=== PATIENT | female | born 1975 | race Caucasian/White ===

== ENCOUNTER → 2016-05-16 | Outpatient (CLI) | payer MEDICAID ==
[~2016-05-16] MED LIST: ACET-2267 PO; ACET1TAB43 PO; DOCU100C37 PO; FERR-74 PO; IBUP-1773 PO; PREN1TAB19 PO
--- OUTSIDE RECORDS SUMMARY | 2016-05-16 08:00 | XMS REPORT ---
Author ALON Mar Organization [employer] Address Unknown Phone Unavailable Care Team Providers Care Jazz Musician Name Role Phone ALON WELLS CP Unavailable Allergies, Adverse Reactions, Alerts Substance Reaction Event Type Latex Info Not Available Drug Allergy Triple Antibiotic Info Not Available Drug Allergy SulfADIAZINE Sodium Info Not Available Drug Allergy nut allergy Info Not Available Non Drug Allergy Problems Problem Type Condition Code Onset Dates Condition Status Problem Routine health maintenance Z00.00 Active Problem Family history of cancer Z80.9 Active Problem Thrombocytopenia D69.6 Active Problem Encounter for dental examination Z01.20 Active Assessment Rash R21 Active Problem Family history of essential hypertension Z82.49 Active Problem Left foot pain M79.672 Active Medications Medication Code System Code Instructions Start Date End Date Status Dosage tylenol NDC 0 Oral 1 tab Motrin [facility] [address]-72 [place] [id number] Orally Once a day 1 tablet iron NDC 0 Oral 1 tab Procedures Procedure Coding System Code Date Office Visit, Est Pt., Level 3 CPT-4 51746 Mar 16, 2016 Vital Signs Date/Time: Mar 16, 2016 Cardiac Monitoring Heart Rate 84 bpm Weight 189 lbs Height 62 in BMI 34.56 Index Blood Pressure Diastolic 82 mmHg Blood Pressure Systolic 126 mmHg Results No Known Results Summary Purpose [employer] Submission
--- NOTE | 2016-05-16 08:44 | Diagnostic Imaging Report ---
EXAMINATION: Bilateral diagnostic mammogram. INDICATION: Skin bruise and palpable lump in the medial inferior aspect of the right breast. Patient has history of low platelets. CAD is utilized. The current study was also evaluated with a Computer Aided Detection (CAD) system. No prior studies are available for comparison. This is a baseline study. FINDINGS: The breasts are composed of heterogenously dense parenchyma which may decrease mammographic sensitivity. There is no suspicious cluster of calcification identified. The palpable area in the inferior medial aspect of the right breast appears to correlate with the lobulated 2 cm lesion, and based on the history may represent a hematoma. The left breast demonstrate numerous areas of nodular like densities within the parenchyma without suspicious articular focal lesion seen. This might relate to fibrocystic changes or summation artifacts of the dense parenchyma. IMPRESSION: Dense breasts. Likely 2 cm hematoma at the medial inferior aspect of the right breast. Bilateral breast ultrasound evaluation is pending. BI-RADS 0. ACR BI-RADS Category 0: Incomplete. (Needs additional imaging evaluation). Result letter will be mailed to the patient. Note: At least 10% of breast cancer is not imaged by mammography. Dictated by: Dictated on workstation # [id number]
--- NOTE | 2016-05-16 09:52 | Diagnostic Imaging Report ---
Exam: Bilateral breast ultrasound. Technique: All four quadrants and the retroareolar region were examined on this study. Findings: At he palpable lump in the region of the bruise at 3 o'clock, 5 cm from the nipple there is a 3.1 x 1.5 x 3 cm hyperechoic lesion surrounded with hyperechoic rim with no internal vascularity, likely related to a hematoma in the right breast. There is no other lesion identified in the the four-quadrant central retroareolar region of either breast. Impression: The palpable area corresponds to a 3.1 cm lesion in the medial aspect of the right breast likely related to hematoma. No suspicious lesion is seen. Clinical followup recommended. BI-RADS 2. ACR BI-RADS Category 2: Benign findings. Result letter will be mailed to the patient. Note: At least 10% of breast cancer is not imaged by mammography. Dictated by: Dictated on workstation # [id number]
== END ==
LOC: RAD 07:57
PROVIDERS: ATTEND Nurse Practitioner Family
DX: N63 Unspecified lump in breast (principal)

== ENCOUNTER → 2017-01-23 | Outpatient (CLI) | payer MEDICAID ==
--- NOTE | 2017-01-23 14:48 | Diagnostic Imaging Report ---
PROCEDURE: US abdomen complete. TECHNIQUE: Multiple real-time grayscale images were obtained over the abdomen in various projections. INDICATION: Thrombocytopenia. FINDINGS: The pancreas appears unremarkable. The liver is fairly homogeneous with no focal lesion seen. Hepatopetal flow in the portal vein is seen. The gallbladder demonstrates a 2.1 cm stone in the fundus with no significant wall thickening or pericholecystic fluid seen. Sonographic Espinoza's sign is reportedly negative. The CBD is 4 mm in caliber. The spleen is 13.4 x 5 cm in size, borderline enlarged. The right kidney is 12 cm and the left kidney is 12.9 cm in length. No hydronephrosis is seen. There is a simple cyst measuring 2.7 cm in the mid left kidney. The lower pole of the right kidney is obscured by bowel gas. The abdominal aorta proximal portion and IVC are seen without definite abnormality. IMPRESSION: 1. Borderline splenomegaly. 2. Cholelithiasis with no evidence of cholecystitis. Dictated by: Dictated on workstation # [id number]
== END ==
LOC: RAD 08:01
PROVIDERS: ATTEND Pediatrics
DX: D69.6 Thrombocytopenia, unspecified; K80.20 Calculus of gallbladder without cholecystitis without obstruction
CPT/HCPCS: 76700

== ENCOUNTER 2017-02-14 08:43 | Outpatient (RCR) | payer MEDICAID ==
[~2017-02-14 08:43] MED LIST changes: -FERR-74 PO; +FERR325T18 PO
[2017-02-14 09:10] LABS: BASOPHILS % (AUTO) 0 % (0-10); EOSINOPHILS # (AUTO) 0.2 10^3/uL (0.0-0.3); EOSINOPHILS % (AUTO) 3 % (0-10); HEMATOCRIT 43 % (35-52); HEMOGLOBIN 14.7 G/DL (11.5-16.0); LYMPHOCYTES # (AUTO) 1.4 X 10^3 (1.0-4.0); LYMPHOCYTES % (AUTO) 21 % (12-44); MEAN CORPUSCULAR HEMOGLOBIN 32 PG (25-34); MEAN CORPUSCULAR HGB CONC 34 G/DL (32-36); MEAN CORPUSCULAR VOLUME 95 FL (80-99); MEAN PLATELET VOLUME 9.1 FL (7.4-10.4); MONOCYTES # (AUTO) 0.8 X 10^3 (0.0-1.0); MONOCYTES % (AUTO) 12 % (0-12); NEUTROPHILS # (AUTO) 4.4 X 10^3 (1.8-7.8); NEUTROPHILS % (AUTO) 65 % (42-75); PLATELET COUNT 96 10^3/uL (130-400); RED BLOOD COUNT 4.54 10^6/uL (4.35-5.85); RED CELL DISTRIBUTION WIDTH 12.2 % (10.0-14.5); WHITE BLOOD COUNT 6.8 10^3/uL (4.3-11.0)
[2017-02-14 09:30] LABS: ALANINE AMINOTRANSFERASE 18 U/L (0-55); ALBUMIN 4.4 GM/DL (3.2-4.5); ALKALINE PHOSPHATASE 54 U/L (40-136); BILIRUBIN,TOTAL 0.5 MG/DL (0.1-1.0); BUN/CREATININE RATIO 24; CARBON DIOXIDE 23 MMOL/L (21-32); CHLORIDE 106 MMOL/L (98-107); GFR ESTIMATED > 60; GLUCOSE 110 MG/DL (70-105); POTASSIUM 4.1 MMOL/L (3.6-5.0); SODIUM 139 MMOL/L (135-145); TOTAL PROTEIN 7.5 GM/DL (6.4-8.2)
== END 2017-05-15 | disposition home or self-care (01) ==
LOC: ONC 08:43
PROVIDERS: ATTEND Internal Medicine Hematology & Oncology
DX: D69.42 Congenital and hereditary thrombocytopenia purpura (principal); R16.1 Splenomegaly, not elsewhere classified; K80.20 Calculus of gallbladder without cholecystitis without obstruction; G43.909 Migraine, unspecified, not intractable, without status migrainosus; E66.9 Obesity, unspecified; Z68.35 Body mass index [BMI] 35.0-35.9, adult
CPT/HCPCS: 36415; 80053; 85025; 99214